=== PATIENT | male | born 1990 | race Hispanic/Latino ===

== ENCOUNTER 2023-08-27 18:39 | Emergency (ER) | payer SELFPAY ==
[~2023-08-27] VITALS: Ht 180.3 cm; Wt 95.3 kg
[2023-08-27] MEDS ORDERED: CEFAZOLIN SODIUM 1 GM VIAL IVPB STA (18:58)
[2023-08-27] MEDS ORDERED: KETOROLAC 30MG VIAL (30MG/ML) IVP ONE (19:00)
[2023-08-27 19:59] LABS: BASOPHILS # (AUTO) 0.08 K/uL (0.00-0.20); BASOPHILS % (AUTO) 0.5 % (0.0-5.0); EOSINOPHILS % (AUTO) 0.6 % (0.0-8.0); HEMATOCRIT 44.1 % (42-54); IMMATURE GRANULOCYTE ABSOLUTE 0.12 K/uL (0-1); LYMPHOCYTES % (AUTO) 19.1 % (21.0-51.0); MEAN CORPUSCULAR HEMOGLOBIN 29.2 pg (27.0-33.0); MEAN CORPUSCULAR HGB CONC 35.1 g/dL (32.0-36.0); MEAN CORPUSCULAR VOLUME 83.1 fL (79-99); MONOCYTES # (AUTO) 0.5 K/uL (0.1-1.0); MONOCYTES % (AUTO) 3.2 % (3.0-13.0); NEUTROPHILS % (AUTO) 75.8 % (40.0-77.0); PLATELET COUNT (AUTO) 256 K/uL (130-400); RED BLOOD CELL COUNT(AUTO) 5.31 MIL/uL (4.50-6.20); RED CELL DISTRIBUTION WIDTH 12.9 % (11.0-15.5); WHITE BLOOD COUNT (AUTO) 15.9 K/uL (4.8-10.8)
[2023-08-27] MEDS ORDERED: LIDOCAINE HCL 1% 20 ML VIAL ONE (20:07)
[2023-08-27] MEDS ORDERED: OCTYL 2-CYANOACRYLATE 1 EACH TP ONE ×2 (20:08→20:09)
[2023-08-27 20:12] LABS: CREATININE 1.5 mg/dL (0.5-1.5); POTASSIUM 3.8 mmol/L (3.5-5.1)
[2023-08-27 20:14] LABS: INR <= 0.93 (0.85-1.15)
[2023-08-27 20:15] LABS: PARTIAL THROMBOPLASTIN TIME 26.6 SEC (26.3-35.5)
[2023-08-27 20:20] VITALS: BP 132/75; PULSE 98; RESP 18; O2SAT 98
[2023-08-27 20:21] LABS: BILIRUBIN,TOTAL 0.4 mg/dL (0.2-1.0); TOTAL PROTEIN, SERUM 7.2 g/dL (6.0-8.3)
[2023-08-27] MEDS ORDERED: IBUP-2077 PO (20:28)
[2023-08-27] MEDS ORDERED: CEPH500B PO (20:28)
[2023-08-27] MEDS ORDERED: OCTYL 2-CYANOACRYLATE 1 EACH TP SCH (20:30)
== END 2023-08-27 20:41 | disposition home or self-care (01) ==
LOC: EDH 18:39
DX: S05.32XA Ocular laceration without prolapse or loss of intraocular tissue, left eye, initial encounter (principal); S30.0XXA Contusion of lower back and pelvis, initial encounter; S80.11XA Contusion of right lower leg, initial encounter; S40.011A Contusion of right shoulder, initial encounter; S40.012A Contusion of left shoulder, initial encounter; Z79.899 Other long term (current) drug therapy; Z98.890 Other specified postprocedural states; Z88.0 Allergy status to penicillin; V86.59XA Driver of other special all-terrain or other off-road motor vehicle injured in nontraffic accident, initial encounter; Y93.I9 Activity, other involving external motion; Y92.488 Other paved roadways as the place of occurrence of the external cause; Y99.8 Other external cause status
CPT/HCPCS: 99285; 70450; 96365; 96375; 80053; 85025; 85610; 85730; 36415; 73502; 73552; 73030; 72100; 72125; 12011; J0690; J1885